=== PATIENT | male | born 1960 ===

== ENCOUNTER 2022-05-17 15:12 | Emergency (ER) | payer SELFPAY ==
[~2022-05-17] VITALS: Ht 172.7 cm; Wt 92.0 kg
[2022-05-17] MEDS ORDERED: TETANUS-DIPTH-ACEL PERTUSSIS 0.5ML SYR Tdap IM ONE (17:15)
[2022-05-17] MEDS ORDERED: ACET-1158 PO (17:57)
[2022-05-17] MEDS ORDERED: CEPH-509 PO (17:57)
[2022-05-17 18:21] VITALS: BP 145/93
== END 2022-05-17 18:30 | disposition home or self-care (01) ==
LOC: ER 15:12
DX: S61.011A Laceration without foreign body of right thumb without damage to nail, initial encounter (principal); Z79.899 Other long term (current) drug therapy; Z88.5 Allergy status to narcotic agent; W26.8XXA Contact with other sharp object(s), not elsewhere classified, initial encounter; Y93.89 Activity, other specified; Y92.89 Other specified places as the place of occurrence of the external cause; Y99.8 Other external cause status
CPT/HCPCS: 12002; 90471; 90715; 99283; J2001